=== PATIENT | male | born 1955 | race Two or more races ===

== ENCOUNTER 2018-09-04 12:14 | Day surgery (SDC) | payer OTHER ==
[~2018-09-04] VITALS: Ht 167.6 cm; Wt 84.8 kg
[2018-09-04 14:14] VITALS: Ht 167.6 cm; Wt 84.8 kg
[2018-09-04] MEDS ORDERED: CARV3.1260 PO (14:22)
[2018-09-04] MEDS ORDERED: PROPOFOL 200 MG INJ ONE (14:30)
[2018-09-04 14:43] VITALS: BP 192/93; PULSE 75; RESP 18
--- NOTE | 2018-09-04 14:46 | PREAC ---
Date/Time of Note Date/Time of Note DATE: 09/04/18 TIME: 14:45 Anesthesia Eval and Record Evaluation Time Pre-Procedure Interview DATE: 09/04/18 TIME: 14:45 Age 62 Sex male NPO: 8 hrs Preoperative diagnosis screening Planned procedure colonoscopy Past Medical History Past Medical History: Includes Cardio: HTN Pulm: Smoking Hx Hepatic: Alcohol abuse Surgery & Anesthesia Issues No known issue Meds Anticoagulation: No Beta Rey within 24 hr: No Reason Beta Rey not given: Pt. not on B-Rey Reported Medications Carvedilol* (Carvedilol*) 3.125 Mg Tablet, 3.125 MG PO BID, #60 TAB 09/04/18 Meds reviewed: Yes Allergies Allergies Reviewed: Yes Labs/Studies Labs Reviewed: Reviewed by anesthesiologist test: N/A Pre-procedure Exam Airway: Adequate mouth opening, Adequate thyromental dist Mallampati: Mallampati III Teeth: Normal Lung: Normal Heart: Normal ASA Physical Status ASA physical status: 3 Emergency: None Pre-operative Attestations Prior to commencing anesthesia and surgery, the patient was re-evaluated, there was verification of: *The patient's identity *The results of appropriate recent lab work and preoperative vital signs *The above evaluation not changing prior to induction *Anesthetic plan, risk benefits, alternative and complications discussed with patient/family; questions answered; patient/family understands, accepts and wishes to proceed. KINZA CRAWFORD DO Sep 04, 2018 14:46
[2018-09-04] MEDS ORDERED: LIDOCAINE 2% (SDV) 5 ML INJ ONE (14:47)
[2018-09-04] MEDS ORDERED: PROPOFOL 40 ML ONE (14:47)
[2018-09-04] MEDS ORDERED: FENTAnyl 50 MCG/ML VIAL ONE (14:47)
[2018-09-04] MEDS ORDERED: MIDAZOLAM 1 MG/ML 2 ML INJ ONE (14:47)
--- NOTE | 2018-09-04 15:17 | PAC ---
Date/Time of Note Date/Time of Note DATE: 09/04/18 TIME: 15:17 Post-Anesthesia Notes Post-Anesthesia Note Activity: WNL Respiratory function: WNL Cardiovascular function: WNL Mental status: Baseline Pain reasonably controlled: Yes Hydration appropriate: Yes Nausea/Vomiting absent: Yes KINZA CRAWFORD DO Sep 04, 2018 15:17
[2018-09-04 15:37] VITALS: BP 141/94; RESP 20
== END 2018-09-04 17:44 | disposition home or self-care (01) ==
LOC: GIL 12:14
PROVIDERS: ATTEND Internal Medicine Gastroenterology
DX: Z12.11 Encounter for screening for malignant neoplasm of colon (principal); K64.8 Other hemorrhoids; I10 Essential (primary) hypertension; Z87.891 Personal history of nicotine dependence
CPT/HCPCS: 45378; J2250; J3010; Z7610